=== PATIENT | female | born 1970 | race Caucasian/White ===

== ENCOUNTER 2019-09-21 00:22 | Day surgery (SDC) | payer OTHER, SELFPAY ==
[2019-09-18 15:04] VITALS: BMI 21.1
[2019-09-21 06:32] VITALS: BP 126/64; PULSE 99; RESP 16; TEMP 37.2; O2SAT 100
[2019-09-21] MEDS: LACTATED RINGERS 1,000 ML 150 ML IV CONT (06:41)
--- NOTE | 2019-09-21 07:12 | WPDANESEPPF ---
Anes - Initial Pre Proc Eval Procedure: Operation Date: 09/21/19 07:30 Proposed Procedures p Screening Colonoscopy - Marques Meyer MD Date/Time: 09/21/19 07:12 Surgeon: Marques Meyer MD Pre Op Diagnosis: Neoplasm Screening Patient Data Age: 49 Gender: F Height: 5 ft 9 in Weight: 63.6 kg Last Vital Signs Temp 37.2 C 09/21/19 06:32 Pulse 99 09/21/19 06:32 Resp 16 09/21/19 06:32 BP 126/64 09/21/19 06:32 Pulse Ox 100 09/21/19 06:32 Allergies Allergy/AdvReac Type Severity Reaction Status Date / Time No Known Allergies Allergy Verified 09/21/19 06:31 Home Medications Medication Instructions Recorded Confirmed Type tamoxifen 20 mg PO DAILY 09/18/19 09/21/19 History Patient hx anesthesia problems: none Family hx anesthesia problems: none PMFSH Past Medical History Medical History (Updated 09/21/19 @ 07:12 by Jonatan Douglas MD) Breast cancer, left Surgical History Surgical History (Updated 09/21/19 @ 07:13 by Jonatan Douglas MD) H/O left mastectomy Family History Family History Sibling Family history of thyroid disease Father Family history of malignant neoplasm of skin Mother Family history of malignant neoplasm of breast in first degree relative Other Hypertension Social History Social History Smoking status: Never smoker Alcohol intake: current Anes - Eval Final PreProcedure Day of Procedure 09/21/19 07:12 Patient weight: normal Heart: regular rate and rhythm Lungs: clear to auscultation Airway: Mallampati scale class 1 Neurological: alert and oriented Last oral intake: >/= 8 hours ASA classification: II Emergent: no Anesthetic plan: proceed Anesthesia type and monitoring: general GIVS and standard monitoring Informed Consent: The patient's anesthetic plan and its attendant risks and benefits were discussed with the patient/family/POA. Questions were solicited and answers provided to the satisfaction of the patient/family/POA.
--- NOTE | 2019-09-21 08:04 | P.CONGI_ITS ---
Assessment and Plan Additional Plan This is a 49-year-old white female patient seen in evaluation at the request of Dr. Tk Diaz. Patient presents for neoplasia screening . Patient states that her weight appetite bowel movements are normal. She denies abdominal pain. She denies any blood in her stools. Family history is significant her grandmother had colon cancer. Past medical history is significant for breast carcinoma on the left. Current medications include tamoxifen. She has no stated drug allergies. Physical exam reveals her to be alert. Vital signs stable. HEENT exam unremarkable. Lungs are clear to auscultation and percussion. Heart is without murmur or extra sounds. Abdominal exam bowel sounds present soft nontender with no hepatosplenomegaly. Digital external rectal exam normal. Impression 1. Neoplasia screening. 2. History of breast carcinoma. Plan is for colonoscopy now and at intervals in the future. Further recommendations after endoscopy. GI Consult Note Consult date/time: 09/21/19 08:04 HPI: Yadira Barba is a 49 year old female [facility] Past Medical History Medical History (Updated 09/21/19 @ 07:12 by Jonatan Douglas MD) Breast cancer, left Surgical History Surgical History (Updated 09/21/19 @ 07:13 by Jonatan Douglas MD) H/O left mastectomy Family History Family History Sibling Family history of thyroid disease Father Family history of malignant neoplasm of skin Mother Family history of malignant neoplasm of breast in first degree relative Other Hypertension Social History Social History Smoking status: Never smoker Alcohol intake: current Meds Home Medications and Allergies Home Medications Medication Instructions Recorded Confirmed Type tamoxifen 20 mg PO DAILY 09/18/19 09/21/19 History Allergies Allergy/AdvReac Type Severity Reaction Status Date / Time No Known Allergies Allergy Verified 09/21/19 06:31 Vital Signs Vital Signs - 24 hr 09/21/19 06:32 Temperature 37.2 C Pulse Rate 99 Respiratory Rate 16 Blood Pressure 126/64 Pulse Oximetry 100
[2019-09-21 08:08] VITALS: BP 77/41; PULSE 87; RESP 18; O2SAT 98
[2019-09-21 08:18] VITALS: BP 78/54; PULSE 90; RESP 18; O2SAT 100
[2019-09-21 08:28] VITALS: BP 106/57; PULSE 71; RESP 18; O2SAT 100
[2019-09-21 08:38] VITALS: BP 101/65; PULSE 88; RESP 16; O2SAT 100
== END 2019-09-21 09:01 | disposition home or self-care (01) ==
PROVIDERS: PCP Family Medicine; Visit Provider Internal Medicine Gastroenterology
PROC: 0DJD8ZZ Inspection of Lower Intestinal Tract, Via Natural or Artificial Opening Endoscopic (ICD-10-PCS; CPT 45378; principal; 2019-09-21 07:30)
DX: Z12.11 Encounter for screening for malignant neoplasm of colon (principal); Z85.3 Personal history of malignant neoplasm of breast
CPT/HCPCS: 45378; J2704; J7120

== ENCOUNTER 2021-06-03 00:49 | Day surgery (SDC) | payer BC, SELFPAY ==
[2021-05-27 15:26] VITALS: BMI 21.4
--- NOTE | 2021-06-03 12:35 | WPDANESEPPF ---
Anes - Initial Pre Proc Eval Procedure: Operation Date: 06/03/21 14:45 Proposed Procedures p Hysteroscopy Dilation and Curettage - Rupesh Harris MD Date/Time: 06/03/21 12:35 Surgeon: Rupesh Harris MD Pre Op Diagnosis: post menopausal bleeding Patient Data Age: 51 Gender: F Height: 1.75 m Weight: 65.77 kg Allergies Allergy/AdvReac Type Severity Reaction Status Date / Time No Known Allergies Allergy Verified 05/27/21 15:26 Home Medications Medication Instructions Recorded Confirmed Type tamoxifen 20 mg PO DAILY 09/18/19 06/03/21 History cetirizine 10 mg tablet 10 mg PO DAILY 11/26/19 05/27/21 History Patient hx anesthesia problems: none Family hx anesthesia problems: none Results Review: All pre-operative results and documents have been reviewed as part of the pre-operative evaluation. [facility] Past Medical History Medical History (Updated 06/03/21 @ 12:36 by Oscar Ceron MD) Breast cancer, left History of nephrolithiasis Surgical History Surgical History H/O left mastectomy Family History Family History Sibling Family history of thyroid disease Father Family history of malignant neoplasm of skin Mother Family history of malignant neoplasm of breast in first degree relative Other Hypertension Social History Social History Smoking status: Never smoker Second hand tobacco smoke exposure: No Alcohol intake: current Drinks per week: 5 Alcohol use details: SMALL GLASS OF WINE WITH DINNER Substance use: never Substance use type: does not use Living arrangements: with family Gender identity (if verbalized by the patient): Female Spiritual care concerns: No Anes - Eval Final PreProcedure Day of Procedure 06/03/21 12:35 Patient weight: normal Heart: regular rate and rhythm Lungs: clear to auscultation and normal air movement Airway: Mallampati scale class II Neurological: alert and oriented Last oral intake: >/= 8 hours ASA classification: III Emergent: no Anesthetic plan: proceed Anesthesia type and monitoring: general GIVS Results Review: All pre-operative results and documents have been reviewed as part of the pre-operative evaluation. Informed Consent: The patient's anesthetic plan and its attendant risks and benefits were discussed with the patient/family/POA. Questions were solicited and answers provided to the satisfaction of the patient/family/POA.
[2021-06-03] MEDS: ACETAMINOPHEN 500 MG TABLET 1000 MG PO (12:57)
[2021-06-03] MEDS: LACTATED RINGERS 1,000 ML 30 ML IV CONT (13:20)
[2021-06-03 13:21] VITALS: BP 110/58; PULSE 94; RESP 16; TEMP 37.4; O2SAT 100
--- NOTE | 2021-06-03 14:02 | PM.IMHP ---
H&P: HPI History of Present Illness Date/Time: 06/03/21 14:02 51 y/o with postmenopausal vaginal bleeding, on tamoxifen, with a thickened endometrial complex on ultrasound. Chief Complaint: Vaginal bleeding Review of Systems Review of Systems: All systems reviewed & are unremarkable except as noted in HPI and below PMFSH Past Medical History Medical History Breast cancer, left History of nephrolithiasis Surgical History Surgical History H/O left mastectomy Family History Family History Sibling Family history of thyroid disease Father Family history of malignant neoplasm of skin Mother Family history of malignant neoplasm of breast in first degree relative Other Hypertension Social History Social History Smoking status: Never smoker Second hand tobacco smoke exposure: No Alcohol intake: current Drinks per week: 5 Alcohol use details: SMALL GLASS OF WINE WITH DINNER Substance use: never Substance use type: does not use Living arrangements: with family Gender identity (if verbalized by the patient): Female Spiritual care concerns: No Meds Home Medications and Allergies Home Medications Medication Instructions Recorded Confirmed Type tamoxifen 20 mg PO DAILY 09/18/19 06/03/21 History cetirizine 10 mg tablet 10 mg PO DAILY 11/26/19 05/27/21 History Allergies Allergy/AdvReac Type Severity Reaction Status Date / Time No Known Allergies Allergy Verified 05/27/21 15:26 Vital Signs Vital Signs - 24 hr 06/03/21 13:21 Temperature 37.4 C Pulse Rate 94 Respiratory Rate 16 Blood Pressure 110/58 L Pulse Oximetry 100 Exam Const: Orientation/consciousness: patient oriented x3 Other: Well-developed, well-nourished female in no acute distress. Neck: Thyroid: thyroid normal Lymphatic: no lymphadenopathy noted (in neck, axilla or inguinal nodes) Resp: Effort & Inspection: normal respiratory effort Auscultation: clear to auscultation bilaterally Cardio: Rate: regular rate Rhythm: regular rhythm Heart sounds: S1 normal heart sound present and S2 normal heart sound present GI: Other: ABD: Soft, nontender, nondistended. No guarding or rebound tenderness. No hepatosplenomegaly. : General: Yes no CVA tenderness Other: External genitalia: normal female hair distribution, without lesion. Urethral meatus: no lesion, non prolapsed. Bladder: no mass, nontender Vagina: atrophic, without lesion or discharge. No cystocele or rectocele. Cervix: no lesion or discharge. Uterus: small, anteverted, freely mobile, nontender Adnexa: no mass or tenderness. Anus/perineum: no lesions, nontender Back/Spine/Pelvis: Back: no CVA tenderness Skin: General skin exam: normal color and no rashes or lesions noted Neuro: General: patient oriented x3 Extrem: Other: Extremities: nontender with no edema Psych: Mental Status: mental status grossly normal Affect: normal affect Assessment and Plan Assessment and plan (1) Abnormal vaginal bleeding with endometrial thickness greater than 5 mm present on transvaginal ultrasound in postmenopausal patient: Code(s): N95.0 - Postmenopausal bleeding; R93.89 - Abnormal findings on diagnostic imaging of other specified body structures Status: Acute Assessment and Plan: A: Postmenopausal vaginal bleeding with thickened endometrial complex, in the setting of tamoxifen therapy. P: I have advised hysteroscopy with D&C to evaluate and treat her problem. She understands risks of surgery to include risks of anesthesia, risks of pain, infection, bleeding, blood products, thromboembolic phenomena and damage to adjacent structures such as bowel, bladder, ureters, blood vessels and nerves. She understands all these
--- NOTE | 2021-06-03 14:18 | WPDHPUPDATE1 ---
History and Physical Update Update Date/Time: 06/03/21 14:18 History and Physical has been reviewed, including an updated exam of the patient. There are NO changes in the patient's condition. Risks, benefits, and alternatives have been discussed and questions answered. Patient agrees to proceed with procedure.
--- NOTE | 2021-06-03 14:19 | WPDHPUPDATE1 ---
History and Physical Update Update Date/Time: 06/03/21 14:19 History and Physical has been reviewed, including an updated exam of the patient. There are NO changes in the patient's condition. Risks, benefits, and alternatives have been discussed and questions answered. Patient agrees to proceed with procedure.
[2021-06-03] MEDS: KETOROLAC 30 MG/ML VIAL (*BKC) IV PUSH (15:30)
[2021-06-03 15:34] VITALS: BP 107/51; PULSE 84; RESP 16; O2SAT 97
--- NOTE | 2021-06-03 15:37 | W.PM.PROC2 ---
Procedure Note - Detailed Date of Procedure 06/03/21 Pre-op Diagnosis post menopausal bleeding Post-op Diagnosis same Procedure Performed Hysteroscopy Dilation and sharp curettage Surgeon Rupesh Harris MD Anesthesia MAC and local (1% lidocaine paracervical block) Findings Atrophic endometrium. Retroverted uterus. Both tubal ostia seen. Endometrial cavity otherwise unremarkable. Description of Procedure The patient was taken to the operating room where she was prepared and draped in the usual sterile fashion in the dorsal lithotomy position. The bladder was drained with a red rubber catheter. A sterile speculum was placed into the vagina. The anterior lip of the cervix was grasped with single-tooth tenaculum. Ten mL of 1% lidocaine was administered in a paracervical block. The cervix was then gently dilated using Hegar dilators until an 8 mm dilator could be passed. Hysteroscopy was performed using sterile saline as a distention medium. Findings are as noted above. Sharp curettage was then performed, and endometrial curettings were collected on a Telfa pad and passed off to be sent to pathology. Hemostasis was excellent. Sponge, lap, needle and instrument counts were correct. The patient was awakened and taken to the recovery room in stable condition. I was present and scrubbed through the entire procedure. Estimated Blood Loss 10 Drains No Packing No Pathology yes (endometrial curettings) Complications None Condition stable Disposition PACU
[2021-06-03 16:00] VITALS: BP 113/67; PULSE 75
[2021-06-03 16:15] VITALS: BP 99/57; PULSE 68
== END 2021-06-03 16:30 | disposition home or self-care (01) ==
PROVIDERS: PCP Family Medicine; Visit Provider Obstetrics & Gynecology
PROC: 0U5B8ZZ Destruction of Endometrium, Via Natural or Artificial Opening Endoscopic (ICD-10-PCS; CPT 58563; principal; 2021-06-03 14:45)
DX: N95.0 Postmenopausal bleeding (principal); N85.4 Malposition of uterus; N85.8 Other specified noninflammatory disorders of uterus; Q50.6 Other congenital malformations of fallopian tube and broad ligament; Z85.3 Personal history of malignant neoplasm of breast
CPT/HCPCS: 58558; 88305; A9270; J1885; J2250; J2405; J2704; J3010; J7120

== ENCOUNTER 2021-10-21 14:18 | Outpatient (CLI) | payer BC, SELFPAY | END 2021-10-21 14:19 | disposition home or self-care (01) | LOC: ANHAUDASC 14:19 | PROVIDERS: PCP Family Medicine; Visit Provider Otolaryngology | DX: H91.91 Unspecified hearing loss, right ear (principal); H93.8X1 Other specified disorders of right ear | CPT/HCPCS: 92557; 92567 ==

== ENCOUNTER 2023-12-14 01:04 | Day surgery (SDC) | payer BC, SELFPAY ==
[2023-12-08 09:34] VITALS: BMI 22.4
--- NOTE | 2023-12-08 09:42 | PC.NURSE ---
Report to the Outpatient Waiting Room, entrance under the green pavilion located off [facility], at time _1200_ on date _[id number]_. Planned Procedure Time: _2pm_. Time changes happen often and if your time is changed the preop area will call you the afternoon before. - You and your visitor will be asked to self-screen and do not enter if you have any COVID symptoms. - A mask is optional within the hospital at this time. Patients may have clear liquids (water, carbonated beverages, clear teas, apple juice) until 3 hours prior to surgery with a maximum of 20 ounces. - No food from midnight until time of surgery Take the following medications with a SIP of water the morning of surgery: __None DO NOT STOP ANY OF YOUR OTHER PRESCRIPTION MEDICATIONS PRIOR TO SURGERY ?EXCEPT THE FOLLOWING Medications to discontinue per physician ____Glucosamine Date to take last qstc___[id number] Please no make-up, nail german, hairspray, perfume, deodorant, or body powder the day of surgery. No jewelry (including any body piercings) or valuables the day of surgery, leave them at home. Please take a shower or bath the night before, or the morning of, surgery with an antibacterial soap. Wear comfortable, loose fitting clothing. - Jewelry must be removed prior to entering the operating room. Rings and piercings that are not removed may be cut off. - The hospital will not accept responsibility for valuables. - Please leave all valuables, including medications, at home the day of surgery. If you are going home after surgery, a licensed hole digger truck driver must drive you home. - NO public transportation without another adult if you receive anesthesia. - We recommend that an adult stay with you for 24 hours following discharge. - We also recommend that you do not drive, make important decision, drink alcoholic beverages, or take any drugs that were not prescribed by your health care provider for at least 24 hours after your discharge time. Follow any additional instructions given to you from your surgeon. If you or anyone in your household have experienced Covid symptoms in the past week, please notify your surgeon or the nurse liaison at the phone number below for possible testing. Telephone instructions given to _Yadira__and asked if any additional questions and then verbalized understanding. Patient advised to call surgeon office or pre surgery nurse liaison [phone] if any additional questions.
[2023-12-14 12:06] VITALS: BP 131/65; PULSE 84; RESP 16; TEMP 36.9; O2SAT 99
--- NOTE | 2023-12-14 12:43 | PM.IMHP ---
H&P: HPI History of Present Illness Date/Time: 12/14/23 12:43 Chief Complaint: Vaginal bleeding. Narrative: 53 y/o who just finished tamoxifen therapy for breast cancer. She developed vaginal bleeding. Ultrasound exam shows an endometrial complex measuring 1.6 cm. I have offered hysteroscopy and D&C. Review of Systems Review of Systems: All systems reviewed & are unremarkable except as noted in HPI and below PMFSH Past Medical History Medical History Breast cancer, left History of nephrolithiasis Surgical History Surgical History H/O left mastectomy Family History Family History Sibling Family history of thyroid disease Father Family history of malignant neoplasm of skin Mother Family history of malignant neoplasm of breast in first degree relative Other Hypertension Social History Social History Smoking status: Never smoker Second hand tobacco smoke exposure: No Alcohol intake: current Drinks per week: 5 Alcohol use details: SMALL GLASS OF WINE WITH DINNER Substance use: never Substance use type: does not use Living arrangements: with family Occupation/Education: occupation Gender identity (if verbalized by the patient): Female Spiritual care concerns: No Meds Home Medications and Allergies Home Medications Medication Instructions Recorded Confirmed Type cetirizine 10 mg tablet (Zyrtec) 10 mg PO DAILY PRN Allergy Symptoms 04/27/23 12/08/23 History acetaminophen 325 mg tablet 325 mg PO Q4H PRN Pain 12/08/23 12/08/23 History glucosamine sulf dipot 1 cap PO DAILY 12/08/23 12/08/23 History chlr,msm,chond 550 mg-C 30 mg-becky 1 mg capsule (Glucosamine Chondroitin) Allergies Allergy/AdvReac Type Severity Reaction Status Date / Time No Known Allergies Allergy Verified 12/14/23 12:13 Exam Const: Orientation/consciousness: patient oriented x3 Other: Well-developed, well-nourished female in no acute distress. Neck: Thyroid: thyroid normal Lymphatic: no lymphadenopathy noted (in neck, axilla or inguinal nodes) Resp: Effort & Inspection: normal respiratory effort Auscultation: clear to auscultation bilaterally Cardio: Rate: regular rate Rhythm: regular rhythm Heart sounds: S1 normal heart sound present and S2 normal heart sound present GI: Other: ABD: Soft, nontender, nondistended. No guarding or rebound tenderness. No hepatosplenomegaly. : General: Yes no CVA tenderness Other: External genitalia: normal female hair distribution, without lesion. Urethral meatus: no lesion, non prolapsed. Bladder: no mass, nontender Vagina: atrophic, without lesion or discharge. No cystocele or rectocele. Cervix: no lesion or discharge. Uterus: small, anteverted, freely mobile, nontender Adnexa: no mass or tenderness. Anus/perineum: no lesions, nontender Back/Spine/Pelvis: Back: no CVA tenderness Skin: General skin exam: normal color and no rashes or lesions noted Neuro: General: patient oriented x3 Extrem: Other: Extremities: nontender with no edema Psych: Mental Status: mental status grossly normal Affect: normal affect Assessment and Plan Assessment and plan (1) Abnormal vaginal bleeding with endometrial thickness greater than 5 mm present on transvaginal ultrasound in postmenopausal patient: Code(s): N95.0 - Postmenopausal bleeding; R93.89 - Abnormal findings on diagnostic imaging of other specified body structures Status: Acute Assessment and Plan: A: Postmenopausal bleeding with an abnormal pelvic ultrasound exam. P: Offered hysteroscopy with dilation and sharp curettage and possible endometrial polypectomy. She understands risks of surgery to include risks of anesthesia, ri
--- NOTE | 2023-12-14 13:02 | WPDHPUPDATE1 ---
History and Physical Update Update Date/Time: 12/14/23 13:02 History and Physical has been reviewed, including an updated exam of the patient. There are NO changes in the patient's condition. Risks, benefits, and alternatives have been discussed and questions answered. Patient agrees to proceed with procedure.
[2023-12-14] MEDS: LACTATED RINGERS 1,000 ML 30 ML IV CONT (13:28)
[2023-12-14] MEDS: ACETAMINOPHEN 500 MG TABLET 1000 MG PO (14:03)
--- NOTE | 2023-12-14 14:24 | WPDANESEPPF ---
Anes - Initial Pre Proc Eval Procedure: Operation Date: 12/14/23 14:00 Proposed Procedures p Hysteroscopy Dilation and Curettage with Polypectomy - Rupesh Harris MD Date/Time: 12/14/23 14:24 Surgeon: Rupesh Harris MD Pre Op Diagnosis: post menopausal bleeding, hx of breast cancer Patient Data Age: 53 Gender: F Height: 1.75 m Weight: 68.5 kg Last Vital Signs Temp 98.4 F 12/14/23 12:06 Pulse 84 12/14/23 12:06 Resp 16 12/14/23 12:06 BP 131/65 12/14/23 12:06 Pulse Ox 99 12/14/23 12:06 O2 Del Method Room Air 12/14/23 12:06 Allergies Allergy/AdvReac Type Severity Reaction Status Date / Time No Known Allergies Allergy Verified 12/14/23 12:13 Home Medications Medication Instructions Recorded Confirmed Type cetirizine 10 mg tablet (Zyrtec) 10 mg PO DAILY PRN Allergy Symptoms 04/27/23 12/08/23 History acetaminophen 325 mg tablet 325 mg PO Q4H PRN Pain 12/08/23 12/08/23 History glucosamine sulf dipot 1 cap PO DAILY 12/08/23 12/08/23 History chlr,msm,chond 550 mg-C 30 mg-becky 1 mg capsule (Glucosamine Chondroitin) Patient hx anesthesia problems: none Family hx anesthesia problems: none Results Review: All pre-operative results and documents have been reviewed as part of the pre-operative evaluation. [facility] Past Medical History Medical History Breast cancer, left History of nephrolithiasis Surgical History Surgical History H/O left mastectomy Family History Family History Sibling Family history of thyroid disease Father Family history of malignant neoplasm of skin Mother Family history of malignant neoplasm of breast in first degree relative Other Hypertension Social History Social History Smoking status: Never smoker Second hand tobacco smoke exposure: No Alcohol intake: current Drinks per week: 5 Alcohol use details: SMALL GLASS OF WINE WITH DINNER Substance use: never Substance use type: does not use Living arrangements: with family Occupation/Education: occupation Gender identity (if verbalized by the patient): Female Spiritual care concerns: No Anes - Eval Final PreProcedure Day of Procedure 12/14/23 14:24 Patient weight: normal Heart: regular rate and rhythm Lungs: clear to auscultation Airway: Mallampati scale Neurological: alert and oriented Last oral intake: >/= 8 hours ASA classification: I Emergent: no Anesthetic plan: proceed Anesthesia type and monitoring: general GIVS and standard monitoring Results Review: All pre-operative results and documents have been reviewed as part of the pre-operative evaluation. Active w elliptical, no cp or sob. Informed Consent: The patient's anesthetic plan and its attendant risks and benefits were discussed with the patient/family/POA. Questions were solicited and answers provided to the satisfaction of the patient/family/POA.
[2023-12-14] MEDS: LIDOCAINE HCL 1% LOCAL INJ 10 ML VIAL INFILTRATE (15:23)
[2023-12-14] MEDS: KETOROLAC 30 MG/ML VIAL (*BKC) IV PUSH (15:41)
--- NOTE | 2023-12-14 15:48 | W.PM.PROC2 ---
Procedure Note - Detailed Date of Procedure 12/14/23 Pre-op Diagnosis Post menopausal bleeding History of breast cancer and tamoxifen use Abnormal pelvic ultrasound Post-op Diagnosis Same Procedure Performed Hysteroscopy Dilation and sharp curettage Endometrial polypectomy Surgeon Rupesh Harris MD Anesthesia MAC and Local (1% lidocaine) Findings Tiny polyp just adjacent to the right tubal ostium. Otherwise, the endometrial cavity was atrophic. Both tubal ostia seen. Description of Procedure The patient was taken to the operating room where she was prepared and draped in the usual sterile fashion in the dorsal lithotomy position. The bladder was drained with a red rubber catheter. A sterile speculum was placed into the vagina. The anterior lip of the cervix was grasped with single-tooth tenaculum. Ten mL of 1% lidocaine was administered in a paracervical block. The cervix was then gently dilated using Hegar dilators until a 7 mm dilator could be passed. Hysteroscopy was performed using sterile saline as a distention medium. Findings are as noted above. The Aveta hysteroscopic resector was advanced and the small polyp by the right tubal ostium was shaved off. Sharp curettage was then performed, and endometrial curettings were collected on a Telfa pad and passed off to be sent to pathology. Hemostasis was excellent. Sponge, lap, needle and instrument counts were correct. The patient was awakened and taken to the recovery room in stable condition. I was present and scrubbed through the entire procedure. Estimated Blood Loss 5 Drains No Packing No Pathology Yes (Endometrial polyp and curettings) Complications None Condition Stable Disposition PACU
[2023-12-14 15:49] VITALS: BP 104/57; PULSE 88; RESP 12; O2SAT 100
[2023-12-14 16:05] VITALS: BP 103/64; PULSE 69
[2023-12-14 16:35] VITALS: BP 111/63; PULSE 73
== END 2023-12-14 16:54 | disposition home or self-care (01) ==
PROVIDERS: PCP Family Medicine; Visit Provider Obstetrics & Gynecology
PROC: 0U5B8ZZ Destruction of Endometrium, Via Natural or Artificial Opening Endoscopic (ICD-10-PCS; CPT 58563; principal; 2023-12-14 14:00)
DX: N95.0 Postmenopausal bleeding (principal); N84.0 Polyp of corpus uteri; Z79.810 Long term (current) use of selective estrogen receptor modulators (SERMs); Z90.12 Acquired absence of left breast and nipple; Z85.3 Personal history of malignant neoplasm of breast; Z80.8 Family history of malignant neoplasm of other organs or systems; Z84.0 Family history of diseases of the skin and subcutaneous tissue; Z80.3 Family history of malignant neoplasm of breast
CPT/HCPCS: 58558; 88305; A9270; J1100; J1885; J1940; J2250; J2405; J2704; J3010; J7120

== ENCOUNTER 2025-06-06 15:33 | Outpatient (CLI) | payer OTHER, SELFPAY ==
--- OUTSIDE RECORDS SUMMARY | 2017-05-02 10:30 | XMS_ITS | Continuity of Care Document ---
Author Organization [employer] [place] Address [address] [place] [address] [address] [place] [address] Phone Care Team Providers Care Metalworking Specialist Name Role Phone Quiroz PT,MPT,ATC, Chad Unavailable Unavai lable Procedures Procedure Date Therapeutic Exercise Therapeutic Activities Neuromuscular Re-Ed Therapeutic Exercise Therapeutic Activities Neuromuscular Re-Ed Manual Therapy Therapeutic Exercise Therapeutic Activities Neuromuscular Re-Ed Manual Therapy Therapeutic Exercise Therapeutic Activities Neuromuscular Re-Ed Manual Therapy Therapeutic Exercise Therapeutic Activities Neuromuscular Re-Ed Manual Therapy Therapeutic Exercise Therapeutic Activities Neuromuscular Re-Ed Manual Therapy Therapeutic Exercise Therapeutic Activities Neuromuscular Re-Ed Manual Therapy Therapeutic Exercise Therapeutic Activities Neuromuscular Re-Ed Manual Therapy PT Evaluation Low Complexity Therapeutic Exercise Neuromuscular Re-Ed Advance Directives Directive Yes / No Effective Date File Name No Information Encounters Encounter Description Practice Location Reason(s) For Visit Diagnoses Date Provider Providers Copied on Encounter [facility], [address], [place], [place], [id number], [place] tel:[phone] [place] No Information May-0 7 Quiroz Chad. , [place], [place]. Referring Provider: Tk Diaz [address] [place] [address] [address], [place], [place], [facility]. tel:[phone] [place] [address] [address], [place], [place], [id number], [place] tel:[phone] [place] No Information Sep-2 7 Quiroz Chad. , [place], [place]. Referring Provider: Terry Urias[address] [place] [address] [address], [place], [place], [facility]. tel:[phone] [place] [address] [address], [place], [place], [id number], [place] tel:[phone] [place] No Information Sep-2 7 Niederhoffer Perla. . Referring Provider: kT Diaz [address] [place] [address] [address], [place], [place], [facility]. tel:[phone] [place] [address] [address], [place], [place], [id number], [place] tel:[phone] [place] No Information Sep-2 7 Niederhoffer Perla. . Referring Provider: Terry Urias[address] [place] [address] [address], [place], [place], [facility]. tel:[phone] [place] [address] [address], [place], [place], [id number], [place] tel:[phone] [place] No Information Sep-1 7 Richie Chad. , [place], [place]. Referring Provider: Steve Urias [facility] [address], [place], [place], [facility]. tel:[phone] [place] [address] [address], [place], [place], [id number], [place] tel:[phone] [place] No Information Sep-1 7 Richie Koehlern. , [place], [place]. Referring Provider: Tk Diaz [address] [place] [address] [address], [place], [facility]. tel:[phone], [place], [place], [id number], tel:[phone] [place] No Information Sep-1 7 [place], [place], [place]. Referring Provider: Tk Diaz [address] [place] [address] [address], [place], [facility]. tel:[phone], [place], [place], [id number], tel:[phone] [place] No Information Sep-1 7 [place], [place], [place]. Referring Provider: Tk Diaz [address] [place] [address] [address], [place], [facility]. tel:[phone], [place], [place], [id number], tel:[phone] [place] Pain in left hipIliotibial band syndrome, left leg Sep-1 7 [place], [place], [place]. Referring Provider: Tk Diaz [address] [place] [address] [address], [place], [place], [facility]. tel:[phone] Family History Family Member Type Diagnosis Age At Onset No Information Payers Payer name Insurance type Covered republican ID Authorpoppy pineda(s) [facility] [id number] Social History Type Description Quantity Date Captured Comments Sex Female Smoking Status No Information Chief Complaint And Reason For Visit No Information Reason For Referral Reason For Referral No Information History Of Present Illness Encounter Date Complaint History Of Prese nt Illness No Information Functional Status Date Functional Assessmen t No Information Instructions Date Instruction Additional Infor mation No Information Assessments Type Assessment Date No Information Patient Care Teams Name Effective Dates (start - stop) Status Members No Information
--- NOTE | ~2025-06-06 | MR_ITS ---
EXAM/PROCEDURE: MR IAC wo/w con HISTORY: dysfunction of rt eustachian tube COMPARISON: None available. TECHNIQUE: Contrast-enhanced IAC MRI performed. Contrast: 14 mL MultiHance FINDINGS: The IACs appear symmetric bilaterally with no lesion or gross abnormality involving the vestibulocochlear nerves. In the areas of the expected course of the eustachian tubes, no lesion is seen. The fossa of Rosenmuller appear within normal limits. No abnormally enhancing lesions on postcontrast series. No acute ischemic event. Copeland-white signal pattern appears intact. Brainstem and cerebellum appear normal. Visualized orbital paranasal caliber structures unremarkable. IMPRESSION: Negative MRI of the IACs. No discrete lesion or mass seen to explain source of patient's symptoms. Reviewed, dictated and finalized at location A. OR VICE PRESIDENT
--- OUTSIDE RECORDS SUMMARY | 2025-06-06 20:58 | XMS_ITS | Clinical Summary ---
Author Organization [facility] Address [address] [place] [address] Care Team Providers Care Sales And Events Coordinator Name Role Phone Tk Diaz MD Primary Care Provider Felicita Harrison MD Unavailable [phone] Allergies Active Allergy Reactions Criticality Noted Date Comments No Known Allergies Other (See comments) Low Reaction: Medications cetirizine (ZyrTEC) 10 mg tablet daily. Active tamoxifen (NOLVADEX) 20 mg tabletIndication s:Malignant neoplasm of upper-outer quadrant of female breast, unspecified estrogen receptor status, unspecified laterality (HCC) Take 1 tablet (20 mg total) by mouth daily 90 tablet 3 06/20/2023 Active Active Problems Problem Noted Date Diagnosed Date Ear fullness, right 12/11/2021 Acquired absence of left breast 10/06/2020 History of breast cancer 09/13/2019 Long-term current use of tamoxifen 04/13/2019 Malignant neoplasm of upper-outer quadrant of fe male breast 04/15/2015 Non-toxic multinodular goiter 12/15/2013 Overview (11/04/2016): NONTOX MULTINODUL GOITER Immunizations Immunization Administration Dates Next Due Pfizer SARS-CoV-2 Monovalent Vaccination (12+ Yrs) PURPLE 09/03/2020,08/14/2020 Surgical History Surgery Date Site/Laterality Comments HERNIA REPAIR 08/01/2010 - 07/31/2011 hernia repair US UNLISTED PROCEDURE LYMPH SYSTEM 09/26/2013 N/A MASTECTOMY BREAST RECONSTRUCTION Medical History Medical History Date Comments Disorder of thyroid Thyroid dise ase Breast cancer (HCC) Mitral valve prolapse Family History Medical History Relation Name Comments Basal cell carcinoma Father Breast cancer Mother Hypertension Mother Uterine cancer Mother Thyroid disease Other Family histo ry of Thyroid disease; Relation Name Status Comments Father Alive Mother Alive Other Social History Tobacco Use Types Packs/Day Years Used Date Smoking Tobacco: Never Smokeless Tobacco: Never Tobacco Cessation:Counseling Given: Not Answered Alcohol Use Standard Drinks/Week Comments No 0 (1 standard drink = 0.6 oz pur e alcohol) Comments No Sex and Gender Information Value Date Recorded Sex Assigned at Not on file Legal 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 Gender Identity Not on file Sexual Orientation Not on file Last Filed Vital Signs Vital Sign Reading Time Taken Comments Blood Pressure 131/75 11/18/2023 1:39 PM CDT Pulse 79 11/18/2023 1:39 PM CDT Temperature 36.5 C (97.7 F) 11/18/2023 1:39 PM CDT Respiratory Rate 18 11/18/2023 1:39 PM CDT Oxygen Saturation 99% 11/18/2023 1:39 PM CDT Inhaled Oxygen Concentration - - Weight 68.5 kg (151 lb) 11/18/2023 1:39 PM CDT Height 175.3 cm (5' 9) 11/24/2022 3:36 PM CDT Body Mass Index 22.3 11/24/2022 3:36 PM CDT Plan of Treatment Health Maintenance Due Date Last Done Comments Cervical Cancer Screening 1969 Colon Cancer Screening-Colonoscopy 1969 Depression Screening 1969 Hepatitis C Screening 1969 DTaP/Tdap/Td Vaccine (1 - Tdap) 02/26/1980 Hepatitis B Screening 1987 Regular Well Visit/Exam 18-64 1987 Pneumococcal vaccine <65 (1 of 2 - PCV) 02/26/1988 Zoster Vaccine (1 of 2) 02/26/1988 Covid-19 Vaccine (3 - Pfizer risk series) 10/01/2020 09/03/2020, 08/14/2020 Influenza Vaccine (#1) 2025 06/11/2019 Breast Cancer Screening-Mammogram 11/29/2025 11/29/2024, 11/28/2023, 11/24/2022, Additional history exists Procedures Procedure Name Priority Date/Time Associated Diagnosis Comments SCREENING MAMMOGRAM RIGHT W ARMEN UNILATERAL ONLY Schedule Routine, Read Routine (OP Routine) 11/29/2024 3:03 PM CDT Malignant neoplasm of upper-outer quadrant of female breast, unspecified estrogen receptor status, unspecified laterality (HCC) Long-term current use of tamoxifen from Last 3 Months or Most Recently Relevant to Health Maintenance Results * Screening Mammogram Right W Armen Unilateral Only (11/29/2024 3:03 PM CDT) Anatomical Region Laterality Modality Breast Right Mammography Narrative 11/30/2024 7:56 AM CDT Mammogram Technique: Right Breast Digital Breast Tomosynthesis, Unilateral C-view 2D Screening mammogram. Views obtained: right craniocaudal and right mediolateral oblique. Computer Aided Detection was performed. Mammogram Findings: The present examination has been compared to prior imaging studies performed at [facility] on 11/23/2021, 11/24/2022 and 11/28/2023. The breast is heterogeneously dense, which may obscure small masses. There is no suspicious abnormality in the right breast. Patient status post contralateral mastectomy for personal history of breast cancer. Impression: There is no mammographic evidence of malignancy. Annual screening mammography is recommended. If supplemental screening is desired, breast MRI would be recommended in this patient with heterogeneously dense breasts. OVERALL FINAL ASSESSMENT: BI-RADS CATEGORY 1: Negative. Procedure Note Ximena Mchugh MD - 11/30/2024 Mammogram Technique: Right Breast Digital Breast Tomosynthesis, Unilateral C-view 2DScreening mammogram. Views obtained: right craniocaudal and right mediolateral oblique. Computer Aided Detection was performed. Mammogram Findings: The present examination has been compared to prior imaging studies performed at [facility] on 11/23/2021, 11/24/2022 and 11/28/2023. The breast is heterogeneously dense, which may obscure small masses. There is no suspicious abnormality in the right breast. Patient status post contralateral mastectomy for personal history ofbreast cancer. Impression: There is no mammographic evidence of malignancy. Annual screening mammography is recommended. If supplemental screeningis desired, breast MRI would be recommended in this patient with heterogeneously dense breasts. OVERALL FINAL ASSESSMENT: BI-RADS CATEGORY 1: Negative. Felicita Harrison MD IMG MAMMO PROCEDURES Final Result from Last 3 Months or Most Recently Relevant to Health Maintenance [facility] [id number] [employer] [facility] CHOICE PLUS ANTHEM ACCESS Care Teams Sales And Events Coordinator Relationship Specialty Start Date End Date Tk Diaz MD [address] [place] [address] PCP - General Family Medicine 04/13/18 Felicita Harrison MD [id number] [facility] [address] [place] [address] Medical Oncologist/Natural Science Manager Medical Oncology 03/13/20
--- OUTSIDE RECORDS SUMMARY | 2025-06-06 20:58 | XMS_ITS ---
Author Organization [facility] Address [address] [place] [address] Care Team Providers Care Pest Control Operator Name Role Phone Tk Diaz MD Primary Care Provider Felicita Harrison MD Unavailable [phone] Active Problems Problem Noted Date Diagnosed Date Ear fullness, right 12/11/2021 Acquired absence of left breast 10/06/2020 History of breast cancer 09/13/2019 Long-term current use of tamoxifen 04/13/2019 Malignant neoplasm of upper-outer quadrant of fe male breast 04/15/2015 Non-toxic multinodular goiter 12/15/2013 Overview (11/04/2016): NONTOX MULTINODUL GOITER Current Treatment and Therapy Plans No current plan information found. Past Treatment and Therapy Plans No past plan information found. Lifetime Dose Tracking * Chemical Lifetime Dose Automatic Entry Manual Entr y DLP 206 mGycm 206 mGycm 0 mGycm
== END 2025-06-06 15:34 | disposition home or self-care (01) ==
PROVIDERS: PCP Family Medicine; Visit Provider Otolaryngology
DX: H69.81 Other specified disorders of Eustachian tube, right ear (principal)
CPT/HCPCS: 70553; A9577